=== PATIENT | female | born 1970 | race Two or more races ===

== ENCOUNTER 2021-10-21 00:39 | Emergency (ER) | payer SELFPAY ==
[2021-10-21 01:03] VITALS: BP 116/95; PULSE 130; RESP 16; BMI 26.6
== END 2021-10-21 02:39 | disposition left against medical advice (07) ==
LOC: JER 00:39
DX: T50.901A Poisoning by unspecified drugs, medicaments and biological substances, accidental (unintentional), initial encounter (principal)
CPT/HCPCS: 99281-25

== ENCOUNTER 2023-12-14 10:21 | Emergency (ER) | payer OTHER ==
[2023-12-14 10:29] VITALS: BP 134/87; PULSE 83; RESP 18; TEMP 98.8; BMI 30.5
[2023-12-14] MEDS ORDERED: ACETAMINOPHEN 500 MG TABLET (FP) ONE (10:51)
[2023-12-14] MEDS: ACETAMINOPHEN 500 MG TABLET (FP) PO ONE (10:56)
== END 2023-12-14 14:55 | disposition home or self-care (01) ==
LOC: JERFT 10:21
DX: S82.65XA Nondisplaced fracture of lateral malleolus of left fibula, initial encounter for closed fracture (principal); W10.9XXA Fall (on) (from) unspecified stairs and steps, initial encounter; Y99.0 Civilian activity done for income or pay
CPT/HCPCS: 73610-TC-LT-FY; 73630-TC-LT; 99283-25

== ENCOUNTER 2024-07-28 06:00 | Day surgery (SDC) | payer OTHER ==
[2024-07-24 16:09] VITALS: BMI 29.2
[2024-07-28 11:17] VITALS: TEMP 98
[2024-07-28 11:53] VITALS: BP 136/91; PULSE 76; RESP 18
== END 2024-07-28 12:09 | disposition home or self-care (01) ==
LOC: JASU-ENDO 06:00
PROVIDERS: ATTEND Internal Medicine Gastroenterology
PROC: 0DBL8ZX Excision of Transverse Colon, Via Natural or Artificial Opening Endoscopic, Diagnostic (ICD-10-PCS; 2024-07-28)
PROC: 0DBN8ZX Excision of Sigmoid Colon, Via Natural or Artificial Opening Endoscopic, Diagnostic (ICD-10-PCS; 2024-07-28)
PROC: 0DBM8ZX Excision of Descending Colon, Via Natural or Artificial Opening Endoscopic, Diagnostic (ICD-10-PCS; 2024-07-28)
PROC: 0DBK8ZX Excision of Ascending Colon, Via Natural or Artificial Opening Endoscopic, Diagnostic (ICD-10-PCS; principal; 2024-07-28 09:30)
DX: Z12.11 Encounter for screening for malignant neoplasm of colon (principal); D12.5 Benign neoplasm of sigmoid colon; K57.30 Diverticulosis of large intestine without perforation or abscess without bleeding; K64.8 Other hemorrhoids
CPT/HCPCS: 88305-TC